=== PATIENT | female | born 1955 | race Caucasian/White ===

== ENCOUNTER 2020-10-02 06:56 | Outpatient (REF) | payer BC, SELFPAY ==
[2020-10-02 08:04] LABS: Alanine Aminotransferase 30 U/L (0-31); Anion Gap 15 (12-20); Aspartate Amino Transferase 25 U/L (5-31); Blood Urea Nitrogen 19 mg/dL (9-16); Calcium 9.4 mg/dL (8.4-10.2); Carbon Dioxide 25 mmol/L (22-29); Chloride 102 mmol/L (96-108); Cholesterol 207 mg/dL; Estimated Glomerular Filt Rate > 60; Glucose Fasting 227 mg/dL (60-99); HDL Cholesterol 38 mg/dL; LDL Cholesterol Calculated 91 mg/dl; Potassium 4.5 mmol/L (3.3-5.1); Sodium 137 mmol/L (135-145); Triglycerides 392 mg/dL
[2020-10-02 08:07] LABS: Estimated Average Glucose 197 mg/dL; Hemoglobin A1c % 8.5 %
[2020-10-02 08:08] LABS: Creatinine Urine 106.62 mg/dL
[2020-10-02 08:27] LABS: Vitamin D 25-OH Total 41.2 ng/mL (>30)
== END 2020-10-02 06:57 | disposition home or self-care (01) ==
LOC: HO.LAB 06:56
PROVIDERS: PCP Internal Medicine; Visit Provider Internal Medicine
DX: E11.29 Type 2 diabetes mellitus with other diabetic kidney complication (principal); E78.5 Hyperlipidemia, unspecified; I10 Essential (primary) hypertension; R80.9 Proteinuria, unspecified
CPT/HCPCS: 36415; 80048; 80061; 82043; 82306; 83036; 84450; 84460

== ENCOUNTER 2022-03-10 07:03 | Outpatient (REF) | payer MEDICARE, BC, SELFPAY ==
[2022-03-10 11:32] LABS: MANUAL DIFF FLAG NO
[2022-03-10 11:47] LABS: Basophils Percent Auto 0.5 % (0-2); Eosinophils Absolute Auto 0.1 X10*3/uL (0.0-0.4); Hematocrit 44.3 % (37.0-47.0); Hemoglobin 14.1 g/dl (12.0-16.0); Imm Gran Abs Auto 0.02 X10*3/uL (0.00-0.03); Imm Gran Pct Auto 0.3 % (0.0-0.4); Lymphocytes Percent Auto 33.3 % (20-40); Mean Corpuscular HGB Conc 31.8 g/dl (31.0-35.0); Mean Corpuscular Hemoglobin 27.9 pg (27.0-33.0); Mean Corpuscular Volume 87.5 fL (80.0-98.0); Mean Platelet Volume 11.1 fL (9.4-12.3); Monocytes Absolute Auto 0.4 X10*3/uL (0.1-1.2); Monocytes Percent Auto 6.4 % (2-11); Neutrophils Absolute Auto 3.5 x10*3/uL (2.0-8.3); Neutrophils Percent Auto 57.5 % (45-73); Platelet Count 197 X10*3/uL (160-400); Red Blood Count 5.06 X10*6/uL (4.20-5.50); White Blood Count 6.1 X10*3/uL (4.8-10.8)
[2022-03-10 12:01] LABS: Alanine Aminotransferase 28 U/L (0-31); Albumin Level 4.1 g/dL (3.5-5.0); Alkaline Phosphatase 91 U/L (39-117); Anion Gap 18 (12-20); Aspartate Amino Transferase 17 U/L (5-31); Bilirubin Total 0.7 mg/dL (0.0-1.0); Blood Urea Nitrogen 16 mg/dL (9-16); Calcium 9.5 mg/dL (8.4-10.2); Carbon Dioxide 26 mmol/L (22-29); Chloride 99 mmol/L (96-108); Cholesterol 252 mg/dL; Estimated Glomerular Filt Rate > 60; Glucose Fasting 222 mg/dL (60-99); HDL Cholesterol 45 mg/dL; Potassium 4.5 mmol/L (3.3-5.1); Sodium 138 mmol/L (135-145); Total Protein 7.3 g/dL (6.5-8.0); Triglycerides 434 mg/dL
[2022-03-10 12:30] LABS: Creatinine Urine 113.55 mg/dL; Microalbum/Creatinine Ratio Ur 15.8 ug/mg cr
[2022-03-10 13:29] LABS: Vitamin D 25-OH Total 29.4 ng/mL (>30)
== END 2022-03-10 07:04 | disposition home or self-care (01) ==
LOC: HO.HMGCLDS 07:03
PROVIDERS: PCP Internal Medicine; Visit Provider Internal Medicine
DX: C44.311 Basal cell carcinoma of skin of nose (principal); E11.29 Type 2 diabetes mellitus with other diabetic kidney complication; I10 Essential (primary) hypertension; E78.1 Pure hyperglyceridemia; R80.9 Proteinuria, unspecified
CPT/HCPCS: 36415; 80053; 80061; 82043; 82306; 85025

== ENCOUNTER 2025-03-24 08:18 | Outpatient (AMB) | payer MEDICARE, BC, SELFPAY ==
--- NOTE | 2025-03-24 08:24 | A.OFFPC_ITS ---
Vital Signs 03/24/25 08:34 Height 5 ft 7.2 in Weight 94.801 kg BMI 32.5 BP 136/74 Blood Pressure Location Lt brachial Position Sitting Respiration 18 Pulse 68 Pulse Source Pulse Oximeter Temp 97.7 F Temp Source Temporal Artery Scan Pulse Oximetry (%) 98 Oxygen Delivery Method Room Air Intake Visit Reasons: KENY - see comments Meat Packager Required: No Accompanied by: Self / Same As Patient Allergies aspirin Allergy (Unknown, Verified 03/24/25 08:25) anaphylaxis Latex Gloves Allergy (Unknown, Uncoded 03/07/22 13:59) rash lisinopril Allergy (Unknown, Uncoded 03/07/22 13:59) anaphylaxis losartan Allergy (Uncoded 03/07/22 13:59) throat swelling flu vac Adverse Reaction (Unknown, Uncoded 03/07/22 13:59) inj site reaction Medication List - Last Reconciled 03/24/25 by ESTRELLITA Aparicio acetaminophen (Tylenol) 325 mg PO QID PRN biotin 1 mg PO DAILY blood sugar diagnostic (FreeStyle Lite Strips) Check fasting glucose twice a day before meals blood-glucose meter (FreeStyle Lite Meter kit) As directed carvedilol 6.25 mg PO BID cholecalciferol (vitamin D3) 125 mcg PO DAILY evolocumab (Repatha SureClick) 140 mg subcut Q2W flaxseed oil 1,000 mg PO BID gemfibrozil 600 mg PO BID ibuprofen 200 mg PO BID lancets (FreeStyle Lancets) Use as directed twice a day before meals metformin 1,000 mg PO BID [id number]-lut-bandar 250 mg (90 mg-160 mg) (Ocuvite Adult 50 Plus) 1 cap PO DAILY psyllium husk (Daily Fiber) 0.52 grams PO BID tirzepatide (Mounjaro) 5 mg subcut QWEEK Tobacco use date assessed: 03/07/22 Fall risk assessment: No Falls in past year Last assessed Fall Risk: 03/24/25 Dental Screening Dental Screen Date: 03/24/25 Did you have a dental visit in the last 12 months?: Yes Did you have a dental problem in the last 6 months where you did not have access to dental care?: No Was dental information given to patient?: Patient has dentist HPI HPI Comments History of Present Illness Details 69-year-old female with history of type 2 diabetes, microalbuminuria, hypertension, hyperlipidemia presenting to the office today for management of chronic conditions and to establish care. She is a former patient of ESTRELLITA Lynn in [place], last seen 4 months ago. Type 2 diabetes with microalbuminuria-last A1c in our system 8.5%, last A1c in [place] about 5.9% in September. Currently on 5 mg Mounjaro weekly, metformin 1000 mg twice daily. Overall compliant with diabetic diet. Due for A1c and microalbumin urine screen. Eye exam is up-to-date Hypertension-taking carvedilol 6.25 mg twice daily. BP 136/74 Hyperlipidemia-on gemfibrozil 600 mg twice daily. Intolerant of statin. Using Repatha. Last ASCVD risk score based on most recent labs 11.4% Obesity- BMI 32.5. Weight watchers. Starting to exercise with walking Concerns: None Health maintenance: Last screening mammogram [id number] Due for DEXA scan-refer Last Cologuard 02/2022, 3 year follow-up. Due ROS: General: No fevers, malaise, unintentional weight loss HEENT: No blurred vision, diplopia. No sore throat, nasal congestion, rhinorrhea, sinus pain, ear pain Cardiovascular: No chest pain, palpitations, or leg edema Respiratory: No shortness of breath, wheezing, cough GI: No abdominal pain, nausea, vomiting, diarrhea, constipation, melena, hematochezia : No dysuria, hematuria, increased urinary frequency, decreased urinary output MSK: No myalgia, back pain Neuro: No headaches, weakness, paresthesias Skin: No rashes or lesions EXAM: Constitutional - Awake and Alert, No apparent distress Eyes - PERRL Cardiovascular - S1S2, RRR, No edema Respiratory - Normal lung expansion, Normal respiratory effort, No respiratory distress, CTA bilaterally Extremities - no calf tenderness bilaterally, no swelling Skin - Warm/Dry Neurological - Alert & oriented x3 Psychological - Appropriate affect [facility] Medical History (Updated 03/24/25 @ 08:33 by ESTRELLITA Aparicio) Basal cell carcinoma (BCC) of [place] Hypertriglyceridemia Diabetes mellitus with microalbuminuria, without long-term current use of insulin Colonoscopy refused Essential hypertension Surgical History No pertinent past surgical history Family History (Updated 03/24/25 @ 08:43 by ESTRELLITA Aparicio) Father Hypertension Mother Hypertriglyceridemia Macular degeneration Rheumatoid arthritis Osteoporosis Dementia Sister Macular degeneration Social History Housing: House Alcohol intake: current Alcohol intake frequency: a few times a month Patient Tobacco Use Status: Never used Tobacco e-Cigarette/Vaping Use: Never Used service: No Current occupational status: retired Cognitive needs: No Hearing needs: No Vision needs: Yes Questionnaire PHQ-9 Over the last 2 weeks, how often have you been bothered by any of the following problems? 1. Little interest or pleasure in doing things: not at all 2. Feeling down, depressed, or hopeless: not at all 3. Trouble falling or staying asleep, or sleeping too much: not at all 4. Feeling tired or having little energy: not at all 5. Poor appetite or overeating: not at all 6. Feeling bad about yourself - or that you are a failure or have let yourself or your family down: not at all 7. Trouble concentrating on things, such as reading the newspaper or watching television: not at all 8. Moving or speaking so slowly that other people could have noticed. Or the opposite - being so fidgety or restless that you have been moving around a lot more than usual: not at all 9. Thoughts that you would be better off or of hurting yourself in some way: not at all Total score: 0 Depression Screening Interpretation: Negative Depression Screening Done: Yes 00663 - PHQ-9 Billing: Yes Source: Developed by Drs. Roland Palm, Sandie Dahl, Ernie Munoz and colleagues, with an educational macey from [employer]. Thrive Questionnaire Date Thrive assessed: 03/07/22 I am a: Patient What is your living situation today?: I have a steady place to live Within the past 12 months, did the food you bought not last and you didn't have the money to get more?: Never true Within the past 12 months, did you worry whether your food would run out before you got money to buy more?: Never true Do you have trouble paying for medicines?: No Do you have trouble getting transportation to medical appointments?: No Do you have trouble paying your heating and electricity bill?: No Do you have trouble taking care of your child, family member or friend?: No Do you have trouble with day-to-day activities such as bathing, preparing meals, shopping, managing finances, etc.?: No Are you currently unemployed and looking for a job?: No Are you interested in more education?: No Please select the resources that you would like help with: None Currently or been in a relationship where the following occur: No concerns reported THRIVE Score: 0 AUDIT C Alcohol Use Questionnaire (AUDIT-C) 1. How often do you have a drink containing alcohol?: Never 3. How often do you have six or more drinks on one occasion?: Never Total Score: 0 COBY-7 AMB Questionnaire COBY-7 Date COBY - 7 assessed: 03/07/22 Feeling nervous, anxious, or on edge: 0 = Not at all Not being able to stop or control worryin = Not at all Worrying too much about different things: 0 = Not at all Trouble relaxin = Not at all Being so restless that it is hard to sit still: 0 = Not at all Becoming easily annoyed or irritable: 0 = Not at all Feeling afraid as if something awful might happen: 0 = Not at all Total COBY-7 score (0-4 normal; 5-9 mild; 10-14 moderate; 15-21 severe): 0 Source: Developed by Drs. Roland Palm, Sandie Dahl, Ernie Munoz and colleagues, with an educational macey from [employer]. COBY-7 Assessment Billing COBY-7 Assessment Tool: COBY-7 Assessment 33232 Physical exam (Primary Care) Tobacco/Smoking Status: Tobacco use Status Tobacco use date assessed 03/07/22 03/24/25 08:27 Patient Tobacco Use Status Never used Tobacco 03/24/25 08:27 e-Cigarette/Vaping Use Never Used 03/24/25 08:27 Depression Screening Interpretation: Negative Thrive Assessment: Date of Thrive Assessment Date Thrive assessed 03/07/22 03/24/25 08:27 Currently or been in a relationship where the following occur: No concerns reported Coding Level of Care Code New Pt Level 4 (52696) Complex visit Add On G2211 Diagnoses Essential hypertension I10 Diabetes mellitus with microalbuminuria, without long-term current use of insulin E11.29; R80.9 Hypertriglyceridemia E78.1 Encounter to establish care Z76.89 Additional Codes COBY-7 Assessment Billing - COBY-7 Assessment Tool: COBY-7 Assessment 25696 ([id number]) PHQ-9 - 95915 - PHQ-9 Billing: Yes ([id number]) Assessment & Plan Assessment & Plan (1) Essential hypertension: Code(s): I10 - Essential (primary) hypertension Category: Medical Plan: Controlled. Continue carvedilol (2) Diabetes mellitus with microalbuminuria, without long-term current use of insulin: Code(s): E11.29 - Type 2 diabetes mellitus with other diabetic kidney complication; R80.9 - Proteinuria, unspecified Category: Medical Plan: Controlled, updated A1c ordered. Continue with annual eye exams. Continue Mounjaro and metformin (3) Hypertriglyceridemia: Code(s): E78.1 - Pure hyperglyceridemia Category: Medical Plan: Continue gemfibrozil. Continue Repatha, screening labs ordered. ASCVD risk score 11.4%, given intolerance to statins, recommend continuation of Repatha (4) Encounter to establish care: Code(s): Z76.89 - Persons encountering health services in other specified circumstances Category: Medical Plan: 69-year-old female presenting to establish care. Plan as above Plan Return to the office in 4 months, labs ordered as below. Referred for DEXA scan and mammogram. Cologuard ordered Orders: Orders Lipid Panel Today E11.29 - Type 2 diabetes mellitus with other diabetic kidney complication, E78.1 - Pure hyperglyceridemia, I10 - Essential (primary) hypertension, R80.9 - Proteinuria, unspecified, Z76.89 - Persons encountering health services in other specified circumstances Hemoglobin A1c Today E11.29 - Type 2 diabetes mellitus with other diabetic kidney complication, E78.1 - Pure hyperglyceridemia, I10 - Essential (primary) hypertension, R80.9 - Proteinuria, unspecified, Z76.89 - Persons encountering health services in other specified circumstances Microalbumin, Random (w Creat) Today E11.29 - Type 2 diabetes mellitus with other diabetic kidney complication, E78.1 - Pure hyperglyceridemia, I10 - Essential (primary) hypertension, R80.9 - Proteinuria, unspecified, Z76.89 - Persons encountering health services in other specified circumstances TSH reflex Free T4 Today E11.29 - Type 2 diabetes mellitus with other diabetic kidney complication, E78.1 - Pure hyperglyceridemia, I10 - Essential (primary) hypertension, R80.9 - Proteinuria, unspecified, Z76.89 - Persons encountering health services in other specified circumstances Vitamin D 25-OH Total Today E11.29 - Type 2 diabetes mellitus with other diabetic kidney complication, E78.1 - Pure hyperglyceridemia, I10 - Essential (primary) hypertension, R80.9 - Proteinuria, unspecified, Z76.89 - Persons encountering health services in other specified circumstances XR DEXA axial skeleton Today E55.9 - Vitamin D deficiency, unspecified, M89.8X9 - Other specified disorders of bone, unspecified site, N95.9 - Unspecified menopausal and perimenopausal disorder MM tomosynthesis screening BI Today Z12.31 - Encounter for screening mammogram for malignant neoplasm of breast Basic Metabolic Panel Today E11.29 - Type 2 diabetes mellitus with other diabetic kidney complication, E78.1 - Pure hyperglyceridemia, I10 - Essential (primary) hypertension, R80.9 - Proteinuria, unspecified, Z76.89 - Persons encountering health services in other specified circumstances Complete Blood Count Auto Diff Today E11.29 - Type 2 diabetes mellitus with other diabetic kidney complication, E78.1 - Pure hyperglyceridemia, I10 - Essential (primary) hypertension, R80.9 - Proteinuria, unspecified, Z76.89 - Persons encountering health services in other specified circumstances Liver Panel Today E11.29 - Type 2 diabetes mellitus with other diabetic kidney complication, E78.1 - Pure hyperglyceridemia, I10 - Essential (primary) hypertension, R80.9 - Proteinuria, unspecified, Z76.89 - Persons encountering health services in other specified circumstances Referrals Cologuard Test Z12.11 - Encounter for screening for malignant neoplasm of colon, Z12.12 - Encounter for screening for malignant neoplasm of rectum Medications: New tirzepatide (Mounjaro) 5 mg (0.5 mL) subcut QWEEK 6 mL 0RF
[2025-03-24 08:34] VITALS: BP 136/74; PULSE 68; RESP 18; TEMP 36.5; O2SAT 98; BMI 32.5
== END 2025-03-24 09:00 | disposition home or self-care (01) ==
PROVIDERS: PCP Physician Assistant; Visit Provider Physician Assistant
DX: I10 Essential (primary) hypertension (principal); E11.29 Type 2 diabetes mellitus with other diabetic kidney complication; R80.9 Proteinuria, unspecified; E78.1 Pure hyperglyceridemia; Z76.89 Persons encountering health services in other specified circumstances

== ENCOUNTER → 2025-03-24 08:18 | Outpatient (BNVA) | payer MEDICARE, BC, SELFPAY | PROVIDERS: PCP Internal Medicine; Visit Provider Physician Assistant | DX: I10 Essential (primary) hypertension (principal); E11.29 Type 2 diabetes mellitus with other diabetic kidney complication; R80.9 Proteinuria, unspecified; E78.1 Pure hyperglyceridemia; Z76.89 Persons encountering health services in other specified circumstances | CPT/HCPCS: 36415; 80061; 80076; 82043; 82306; 82570; 83036; 84443; 96127; 99202 ==